=== PATIENT | male | born 1985 | race Caucasian/White ===

== ENCOUNTER 2023-06-23 16:23 | Inpatient (IN) | payer OTHER ==
[2023-06-23 17:32] VITALS: BMI 34.5
[2023-06-23] MEDS ORDERED: guaiFENesin 600 MG TABLET.ER (FP) PO PRN (18:58)
[2023-06-23] MEDS ORDERED: DICYCLOMINE HCL 10 MG CAPSULE PO PRN (18:58)
[2023-06-23] MEDS ORDERED: METHOCARBAMOL 500 MG TABLET PO PRN (18:58)
[2023-06-23] MEDS ORDERED: POLYETHYLENE GLYCOL (HEALTHYLAX) 3350 17 GM PACKET PO PRN (18:58)
[2023-06-23] MEDS ORDERED: MAGNESIUM HYDROX 2400MG/30ML ORAL SUSPENSION 30 ML CUP PO PRN (18:58)
[2023-06-23] MEDS ORDERED: ONDANSETRON *ODT* 4 MG TABLET SL PRN (18:58)
[2023-06-23] MEDS ORDERED: BENZOCAINE/MENTHOL (CHLORASEPTIC ) LOZENGE MM PRN (18:58)
[2023-06-23] MEDS ORDERED: IBUPROFEN 400 MG TABLET (FP) PO PRN (18:58)
[2023-06-23] MEDS ORDERED: BENZONATATE 200 MG CAPSULE PO PRN (18:58)
[2023-06-23] MEDS ORDERED: NALOXONE HCL (KLOXXADO) 8 MG SPRAY NS PRN (18:58)
[2023-06-23] MEDS ORDERED: LOPERAMIDE HCL 2 MG CAPSULE PO PRN (18:58)
[2023-06-23] MEDS ORDERED: BISMUTH SUBSALICYLATE 524 MG/30 ML PO PRN (18:58)
[2023-06-23] MEDS ORDERED: MAG HYDROX/AL HYDROX/SIMETH 30 ML UNIT-DOSE CUP PO PRN (18:58)
[2023-06-23] MEDS ORDERED: NALOXONE HCL 0.4 MG/ML VIAL IM PRN (18:58)
[2023-06-23] MEDS ORDERED: hydrOXYzine PAMOATE 25 MG CAPSULE (FP) PO PRN (18:58)
[2023-06-23] MEDS: diazePAM 5 MG TABLET PO PRN (19:50)
[2023-06-23] MEDS: ACETAMINOPHEN 325 MG TABLET (FP) PO PRN (19:51)
[2023-06-23] MEDS: cloNIDine HCL 0.1 MG TABLET PO SCH (22:20)
[2023-06-23] MEDS: THIAMINE HCL 100 MG TABLET (FP) PO SCH (22:20)
[2023-06-23] MEDS: MELATONIN 5 MG TABLETS PO SCH (22:20)
[2023-06-23] MEDS: GABAPENTIN 400 MG CAPSULE PO SCH (22:20)
[2023-06-23] MEDS: diazePAM 5 MG TABLET PO SCH (22:38)
[2023-06-24] MEDS: GABAPENTIN 400 MG CAPSULE PO SCH ×3 (05:58→22:37)
[2023-06-24] MEDS: cloNIDine HCL 0.1 MG TABLET PO SCH ×3 (05:58→22:37)
[2023-06-24] MEDS: diazePAM 5 MG TABLET PO SCH ×4 (05:58→22:38)
[2023-06-24] MEDS ORDERED: methaDONE HCL 10 MG TABLET (FOR DETOX USE ONLY) PO ONE (10:00)
[2023-06-24] MEDS: PRENATAL VITAMINS W/ FOLIC ACID TABLET (FP) PO SCH (10:03)
[2023-06-24] MEDS: HYDROCHLOROTHIAZIDE 25 MG TABLET (FP) PO SCH (10:04)
[2023-06-24 11:26] LABS: URINE APPEARANCE CLEAR; URINE BILIRUBIN NEGATIVE (NEGATIVE); URINE COLOR YELLOW; URINE GLUCOSE (UA) NEGATIVE (NEGATIVE); URINE KETONE TRACE (NEGATIVE); URINE LEUK ESTERASE NEGATIVE (NEGATIVE); URINE NITRITE NEGATIVE (NEGATIVE); URINE PROTEIN NEGATIVE (NEGATIVE)
[2023-06-24] MEDS: diazePAM 5 MG TABLET PO PRN (13:41)
[2023-06-24 15:30] LABS: HEMATOCRIT 33.5 % (35.4-49); HEMOGLOBIN 11.4 GM/dL (11.7-16.9); MCH 29.5 pg (25.7-33.7); MEAN CELL VOLUME 86.8 fl (80-96); MEAN PLT VOLUME 8.3 fl (7.5-11.1); PLATELET COUNT 182 10^3/uL (134-434); RBC 3.86 M/mm3 (4.00-5.60); RDW 14.1 % (11.9-15.9); WHITE BLOOD COUNT 5.6 K/mm3 (4.0-10.0)
[2023-06-24 15:32] LABS: CHLORIDE 110 mmol/L (98-107); SODIUM 141 mmol/L (136-145)
[2023-06-24 15:35] LABS: ALBUMIN 3.1 g/dl (3.4-5.0); ANION GAP 1 mmol/L (4-13); BLOOD UREA NITROGEN 14.9 mg/dL (7-18); CALCIUM 8.5 mg/dL (8.5-10.1); CO2 30 mmol/L (21-32); GLUCOSE,RANDOM 113 mg/dL (74-106)
[2023-06-24 15:39] LABS: CREATININE 0.9 mg/dL (0.55-1.3); SGOT/AST 14 U/L (15-37); SGPT/ALT 23 U/L (13-61)
[2023-06-24 15:40] LABS: BILIRUBIN,TOTAL 0.2 mg/dL (0.2-1)
[2023-06-24 15:41] LABS: ALK PHOS 60 U/L (45-117); TOT PROT 5.9 g/dl (6.4-8.2)
[2023-06-24] MEDS: diazePAM 5 MG TABLET PO ONE (17:43)
[2023-06-24] MEDS: THIAMINE HCL 100 MG TABLET (FP) PO SCH (22:38)
[2023-06-24] MEDS: MELATONIN 5 MG TABLETS PO SCH (23:04)
[2023-06-24] MEDS: ACETAMINOPHEN 325 MG TABLET (FP) PO PRN (23:36)
[2023-06-25] MEDS: cloNIDine HCL 0.1 MG TABLET PO SCH ×3 (06:01→22:29)
[2023-06-25] MEDS: diazePAM 5 MG TABLET PO SCH ×3 (06:01→22:30)
[2023-06-25] MEDS: GABAPENTIN 400 MG CAPSULE PO SCH ×3 (06:01→22:30)
[2023-06-25] MEDS: PRENATAL VITAMINS W/ FOLIC ACID TABLET (FP) PO SCH (09:57)
[2023-06-25] MEDS: diazePAM 5 MG TABLET PO PRN ×2 (09:57→20:05)
[2023-06-25] MEDS: HYDROCHLOROTHIAZIDE 25 MG TABLET (FP) PO SCH (09:57)
[2023-06-25] MEDS ORDERED: methaDONE HCL 10 MG TABLET (FOR DETOX USE ONLY) PO ONE (10:00)
[2023-06-25] MEDS: IBUPROFEN 600 MG TABLET (FP) PO PRN ×2 (10:07→20:10)
[2023-06-25] MEDS: THIAMINE HCL 100 MG TABLET (FP) PO SCH (22:30)
[2023-06-25] MEDS: MELATONIN 5 MG TABLETS PO SCH (22:30)
[2023-06-26] MEDS: diazePAM 5 MG TABLET PO SCH ×2 (05:22→17:41)
[2023-06-26] MEDS: cloNIDine HCL 0.1 MG TABLET PO SCH ×3 (05:23→22:29)
[2023-06-26] MEDS: GABAPENTIN 400 MG CAPSULE PO SCH ×3 (05:23→22:29)
[2023-06-26] MEDS: HYDROCHLOROTHIAZIDE 25 MG TABLET (FP) PO SCH (09:44)
[2023-06-26] MEDS: PRENATAL VITAMINS W/ FOLIC ACID TABLET (FP) PO SCH (09:44)
[2023-06-26] MEDS: diazePAM 5 MG TABLET PO PRN ×2 (09:44→13:53)
[2023-06-26] MEDS: IBUPROFEN 600 MG TABLET (FP) PO PRN ×2 (09:48→20:44)
[2023-06-26] MEDS: NICOTINE POLACRILEX 2 MG GUM BUC PRN ×2 (17:42→22:32)
[2023-06-26] MEDS ORDERED: diazePAM 5 MG TABLET PO ONE (20:16)
[2023-06-26] MEDS: MELATONIN 5 MG TABLETS PO SCH (22:29)
[2023-06-26] MEDS: THIAMINE HCL 100 MG TABLET (FP) PO SCH (22:29)
[2023-06-27] MEDS: cloNIDine HCL 0.1 MG TABLET PO SCH ×3 (05:33→21:40)
[2023-06-27] MEDS: GABAPENTIN 400 MG CAPSULE PO SCH ×3 (05:33→21:40)
[2023-06-27] MEDS: diazePAM 5 MG TABLET PO ONE (05:33)
[2023-06-27] MEDS ORDERED: methaDONE HCL 10 MG TABLET (FOR DETOX USE ONLY) PO ONE (10:00)
[2023-06-27] MEDS: HYDROCHLOROTHIAZIDE 25 MG TABLET (FP) PO SCH (10:10)
[2023-06-27] MEDS: PRENATAL VITAMINS W/ FOLIC ACID TABLET (FP) PO SCH (10:10)
[2023-06-27] MEDS: IBUPROFEN 600 MG TABLET (FP) PO PRN ×2 (10:11→18:38)
[2023-06-27] MEDS: NICOTINE POLACRILEX 2 MG GUM BUC PRN ×5 (10:13→21:41)
[2023-06-27] MEDS: MELATONIN 5 MG TABLETS PO SCH (21:40)
[2023-06-27] MEDS: THIAMINE HCL 100 MG TABLET (FP) PO SCH (21:40)
[2023-06-27] MEDS: diazePAM 5 MG TABLET PO PRN (21:40)
[2023-06-27] MEDS: ACETAMINOPHEN 325 MG TABLET (FP) PO PRN (21:43)
[2023-06-28] MEDS: GABAPENTIN 400 MG CAPSULE PO SCH (05:31)
[2023-06-28] MEDS: cloNIDine HCL 0.1 MG TABLET PO SCH (05:31)
[2023-06-28] MEDS: diazePAM 5 MG TABLET PO PRN (05:33)
[2023-06-28 06:28] VITALS: TEMP 97.7
[2023-06-28] MEDS: IBUPROFEN 600 MG TABLET (FP) PO PRN (08:40)
[2023-06-28] MEDS: NICOTINE POLACRILEX 2 MG GUM BUC PRN (08:42)
[2023-06-28] MEDS: PRENATAL VITAMINS W/ FOLIC ACID TABLET (FP) PO SCH (10:01)
[2023-06-28] MEDS: HYDROCHLOROTHIAZIDE 25 MG TABLET (FP) PO SCH (10:02)
[2023-06-28 10:04] VITALS: BP 104/64; PULSE 63; RESP 18
[2023-06-28] MEDS: ACETAMINOPHEN 325 MG TABLET (FP) PO PRN (10:04)
== END 2023-06-28 12:02 | disposition other institution (70) | DRG 773 ==
LOC: YASAS 16:23 → Y3N 18:56
PROVIDERS: ADMIT Allergy & Immunology; ATTEND Surgery
PROC: HZ2ZZZZ Detoxification Services for Substance Abuse Treatment (ICD-10-PCS; principal; 2023-06-23)
DX: F11.23 Opioid dependence with withdrawal (principal); F13.230 Sedative, hypnotic or anxiolytic dependence with withdrawal, uncomplicated; F17.210 Nicotine dependence, cigarettes, uncomplicated; G62.9 Polyneuropathy, unspecified; I10 Essential (primary) hypertension
CPT/HCPCS: 36415; 80053; 80307; 81003; 85027; 86780; 87635; 93005; 93010